=== PATIENT | male | born 1945 | race Caucasian/White ===

== ENCOUNTER → 2016-04-18 | Outpatient (CLI) | payer MEDICARE, OTHER ==
[~2016-04-18] MED LIST: ASPIR 8181 MG PO; ASPIRIN325 MG PO; BREO ELLIPTA 11 EACH INH; COMBIVENT RESPIM4 GM INH; COMPAZINE10 MG PO; COREG3.125 MG PO; COREG6.25 M1 PO; COZAAR50 MG PO; DUONEB 3.0-0.5 M3 ML INH; DUONEB 3.0-0.5 M3 ML NEB; LASIX20 MG PO; LEVAQUIN500 MG PO; LIPITOR20 MG PO; MOTRIN IB200 MG PO; MOTRIN800 MG PO; NITROSTAT0.4 MG SL; NORVASC5 MG PO; POTASSIUM GLUC500 MG PO; POTASSIUM99 MG PO; PRILOSEC20 MG PO; SYMBICORT 160-4.6 GM INH; SYMBICORT 80-46.9 GM INH; ULTRAM50 MG PO; ZOFRAN4 MG PO
== END | disposition short-term general hospital (02) ==
LOC: CLCARD 09:31
DX: I25.10 Atherosclerotic heart disease of native coronary artery without angina pectoris (principal); C34.90 Malignant neoplasm of unspecified part of unspecified bronchus or lung; I10 Essential (primary) hypertension; J44.9 Chronic obstructive pulmonary disease, unspecified; Z79.82 Long term (current) use of aspirin; Z79.899 Other long term (current) drug therapy

== ENCOUNTER → 2016-05-13 | Outpatient (CLI) | payer MEDICARE, OTHER | END | disposition short-term general hospital (02) | LOC: CLONCO 08:24 | DX: C34.90 Malignant neoplasm of unspecified part of unspecified bronchus or lung (principal); R53.83 Other fatigue ==

== ENCOUNTER → 2016-06-10 | Outpatient (CLI) | payer MEDICARE, OTHER | END | disposition short-term general hospital (02) | LOC: CLONCO 01:10 | DX: C34.90 Malignant neoplasm of unspecified part of unspecified bronchus or lung (principal); C79.71 Secondary malignant neoplasm of right adrenal gland; C79.72 Secondary malignant neoplasm of left adrenal gland; R51 Headache ==

== ENCOUNTER → 2016-06-24 | Outpatient (CLI) | payer MEDICARE, OTHER | END | disposition short-term general hospital (02) | LOC: CLONCO 06:56 | DX: C34.11 Malignant neoplasm of upper lobe, right bronchus or lung (principal); C79.70 Secondary malignant neoplasm of unspecified adrenal gland; R11.2 Nausea with vomiting, unspecified; D70.9 Neutropenia, unspecified; R10.9 Unspecified abdominal pain | CPT/HCPCS: J1642; J2405 ==

== ENCOUNTER → 2016-07-08 | Outpatient (CLI) | payer MEDICARE, OTHER | END | disposition short-term general hospital (02) | LOC: CLONCO 08:29 | DX: C34.11 Malignant neoplasm of upper lobe, right bronchus or lung (principal); C79.70 Secondary malignant neoplasm of unspecified adrenal gland; E87.1 Hypo-osmolality and hyponatremia ==

== ENCOUNTER → 2016-07-30 | Outpatient (CLI) | payer MEDICARE, OTHER | END | disposition short-term general hospital (02) | LOC: CLONCO 13:28 | DX: C34.11 Malignant neoplasm of upper lobe, right bronchus or lung (principal); E87.1 Hypo-osmolality and hyponatremia; Z79.899 Other long term (current) drug therapy ==

== ENCOUNTER → 2016-10-29 | Outpatient (CLI) | payer MEDICARE, OTHER | END | disposition short-term general hospital (02) | LOC: CLONCO 10-28 15:45 | DX: C34.90 Malignant neoplasm of unspecified part of unspecified bronchus or lung (principal); E88.09 Other disorders of plasma-protein metabolism, not elsewhere classified; D64.9 Anemia, unspecified ==